=== PATIENT | male | born 1940 | race Caucasian/White ===

== ENCOUNTER 2021-09-14 08:00 | Inpatient (IN) | payer OTHER ==
[~2021-09-14] VITALS: Ht 177.8 cm; Wt 107.3 kg
[~2021-09-14 08:00] MED LIST: ASPI-1005 PO; ATEN100T PO; FENO160T16 PO; ISOS30TA92 PO; KRIL1CAP18 PO; LISI40TA9 PO; METF-444 PO; MULT-1258 PO; NAPR-1023 PO; PANT40TA54 PO; PRAV20TA4 PO
[2021-09-14 12:33] LABS: BASOPHILS % (AUTO) 0.7 % (0.0-5.0); EOSINOPHILS % (AUTO) 3.7 % (0.0-8.0); LYMPHOCYTES % (AUTO) 21.7 % (21.0-51.0); MEAN CORPUSCULAR HEMOGLOBIN 29.6 pg (27.0-33.0); MEAN CORPUSCULAR HGB CONC 33.7 g/dL (32.0-36.0); MEAN CORPUSCULAR VOLUME 87.7 fL (79-99); MONOCYTES % (AUTO) 7.7 % (3.0-13.0); PLATELET COUNT (AUTO) 252 K/uL (130-400); RED BLOOD CELL COUNT(AUTO) 3.99 MIL/uL (4.50-6.20); RED CELL DISTRIBUTION WIDTH 16.8 % (11.0-15.5); WHITE BLOOD COUNT (AUTO) 5.7 K/uL (4.8-10.8)
[2021-09-14 12:40] LABS: APPEARANCE,URINE Clear (CLEAR); BILIRUBIN,URINE Negative (NEGATIVE); COLOR,URINE Yellow (YELLOW); GLUCOSE, URINE (UA) Negative (NEGATIVE); KETONES,URINE Negative (NEGATIVE); LEUKOCYTE ESTERASE ,URINE Negative (NEGATIVE); NITRATE,URINE Negative (NEGATIVE); OCCULT BLOOD,URINE Negative (NEGATIVE); PROTEIN,URINE Negative (NEGATIVE); UROBILINOGEN,URINE 0.2 mg/dL (0.2-1.0)
[2021-09-14 12:42] LABS: CREATININE 2.2 mg/dL (0.5-1.5); POTASSIUM 4.4 mmol/L (3.5-5.1)
[2021-09-14 12:50] LABS: INR 1.13 (0.85-1.15); PROTHROMBIN TIME 12.2 SEC (9.6-11.6)
[2021-09-14 18:54] VITALS: BP 140/69
[2021-09-14] MEDS ORDERED: MIRA50TA PO (19:25)
[2021-09-14] MEDS ORDERED: FURO40TA5 PO (19:25)
[2021-09-14] MEDS ORDERED: METO2.5T2 PO (19:25)
[2021-09-14] MEDS ORDERED: GABA100C PO (19:25)
[2021-09-14] MEDS ORDERED: HYDR-4060 PO (19:25)
[2021-09-15] VITALS (25 sets, daily range): BP systolic 141–168; BP diastolic 54–90
[2021-09-15] MEDS: CEFAZOLIN SODIUM 1 GM VIAL ONE ×2 (09:18→12:04)
[2021-09-15] MEDS ORDERED: LACTATED RINGERS 1000ML 0 ML IV ONE (09:18)
[2021-09-15] MEDS ORDERED: 0.9%NACL 1000ML 1,000 ML IV ONE (09:34)
[2021-09-15] MEDS ORDERED: CEFAZOLIN SODIUM 1 GM VIAL ONE (10:51)
[2021-09-15] MEDS ORDERED: ACETAMINOPHEN 500 MG TABLET ONE (11:28)
[2021-09-15] MEDS ORDERED: KETOROLAC 15MG/ML VIAL (15MG/ML) ONE (11:29)
[2021-09-15] MEDS ORDERED: CELECOXIB 200 MG CAP ONE (11:29)
[2021-09-15] MEDS ORDERED: SUCCINYLCHOLINE CHLORIDE 20 MG/ML 10 ML VIAL ONE (11:47)
[2021-09-15] MEDS ORDERED: LIDOCAINE PF 100MG/5ML (2%) SYRINGE 5ML ONE (11:47)
[2021-09-15] MEDS ORDERED: DEXAMETHASONE SOD PHOSPHATE 10MG/ML 1ML VIAL ONE (11:47)
[2021-09-15] MEDS ORDERED: FENTANYL CITRATE PF 50 MCG/1 ML 2ML VIAL ONE (11:48)
[2021-09-15] MEDS ORDERED: NEOSTIGMINE 5MG/5ML SYR IV ONE (11:48)
[2021-09-15] MEDS ORDERED: GLYCOPYRROLATE 1 MG/5 ML SYRINGE ONE (11:48)
[2021-09-15] MEDS ORDERED: PROPOFOL 10 MG/ML 20ML VIAL IV ONE (11:48)
[2021-09-15] MEDS ORDERED: ROCURONIUM 10MG/1ML SYR 10 MG/ML ML ONE ×2 (11:49→12:36)
[2021-09-15] MEDS ORDERED: MIDAZOLAM HCL 1 MG/ML 2ML VIAL ONE (11:49)
[2021-09-15] MEDS ORDERED: ROPIVACAINE 0.5% 5MG/ML 30ML IJ ONE (11:59)
[2021-09-15] MEDS ORDERED: EPHEDRINE SULFATE 50 MG/ML AMPULE ONE (12:07)
[2021-09-15] MEDS ORDERED: CEFAZOLIN SODIUM 1 GM VIAL IRRIG ONE (12:45)
[2021-09-15] MEDS ORDERED: KCL 20 MEQ ERTAB PO PRN (14:00)
[2021-09-15] MEDS: ACETAMINOPHEN 500 MG TABLET PO SCH ×2 (14:00→20:10)
[2021-09-15] MEDS ORDERED: POTASSIUM CHLORIDE 10% ELIXIR 20 MEQ/15 ML UDCUP PO PRN (14:00)
[2021-09-15] MEDS ORDERED: TRAMADOL HCL 50 MG TABLET PO PRN (14:00)
[2021-09-15] MEDS ORDERED: OXYCODONE HCL 5 MG TAB PO PRN (14:00)
[2021-09-15] MEDS ORDERED: DiphenhydrAMINE HCL 50 MG/ML VIAL IVP PRN (14:00)
[2021-09-15] MEDS ORDERED: CALCIUM CARB 500MG PO PRN (14:00)
[2021-09-15] MEDS ORDERED: LIDOCAINE HCL-MPF 1% 2ML VIAL IV PRN (14:00)
[2021-09-15] MEDS ORDERED: KETOROLAC 15MG/ML VIAL (15MG/ML) IV PRN (14:00)
[2021-09-15] MEDS ORDERED: ONDANSETRON 4MG INJ IVP PRN (14:00)
[2021-09-15] MEDS: 0.9%NACL 1000ML 1,000 ML IV SCH (14:00)
[2021-09-15] MEDS ORDERED: POTASSIUM CHLORIDE 20MEQ/100ML 100 ML IV PRN (14:00)
[2021-09-15] MEDS ORDERED: MEPERIDINE-PF 25 MG/ML SYG ONE (15:00)
[2021-09-15] MEDS: INSULIN HUMULIN R 100 UNIT/ML 3ML SQ SCH ×2 (16:30→20:17)
[2021-09-15] MEDS: CEFAZOLIN SODIUM 1 GM VIAL IVP SCH (18:17)
[2021-09-15] MEDS: OXYCODONE HCL 5 MG TAB PO PRN (18:35)
[2021-09-15] MEDS: ISOSORBIDE MONO 30MG SR TAB PO SCH (20:09)
[2021-09-15] MEDS: CELECOXIB 200 MG CAP PO SCH (20:10)
[2021-09-15] MEDS: LISINOPRIL 40 MG TABLET PO SCH (20:10)
[2021-09-15] MEDS: GABAPENTIN 100 MG CAPSULE PO SCH (20:10)
[2021-09-16 00:22] VITALS: BP 143/58
[2021-09-16] MEDS: OXYCODONE HCL 5 MG TAB PO PRN ×3 (01:43→12:31)
[2021-09-16 04:00] VITALS: BP 149/66
[2021-09-16 04:16] LABS: HEMATOCRIT 28.6 % (42-54); MEAN CORPUSCULAR HEMOGLOBIN 28.7 pg (27.0-33.0); MEAN CORPUSCULAR HGB CONC 32.5 g/dL (32.0-36.0); MEAN CORPUSCULAR VOLUME 88.3 fL (79-99); RED BLOOD CELL COUNT(AUTO) 3.24 MIL/uL (4.50-6.20); RED CELL DISTRIBUTION WIDTH 16.6 % (11.0-15.5); WHITE BLOOD COUNT (AUTO) 4.4 K/uL (4.8-10.8)
[2021-09-16] MEDS: CEFAZOLIN SODIUM 1 GM VIAL IVP SCH (04:19)
[2021-09-16 04:23] LABS: POTASSIUM 3.6 mmol/L (3.5-5.1)
[2021-09-16] MEDS: 0.9%NACL 1000ML 1,000 ML IV SCH ×2 (04:27→10:00)
[2021-09-16] MEDS: ACETAMINOPHEN 500 MG TABLET PO SCH ×2 (05:58→14:27)
[2021-09-16] MEDS: INSULIN HUMULIN R 100 UNIT/ML 3ML SQ SCH ×3 (06:19→16:29)
[2021-09-16] MEDS ORDERED: PANTOPRAZOLE 40 MG TAB DR PO SCH (07:30)
[2021-09-16 08:00] VITALS: BP 138/72
[2021-09-16] MEDS ORDERED: (Fenofibrate 160 MG) PO SCH (08:00)
[2021-09-16] MEDS ORDERED: NON-FORMULARY MEDICATION 1 EACH (Atenolol 100 MG) PO SCH (09:00)
[2021-09-16] MEDS ORDERED: METOLAZONE 2.5 MG TABLET PO SCH (09:00)
[2021-09-16] MEDS ORDERED: ASPIRIN 81MG CHEW TAB PO SCH (09:00)
[2021-09-16] MEDS ORDERED: FUROSEMIDE 40 MG TABLET PO SCH (09:00)
[2021-09-16] MEDS ORDERED: ATENOLOL 50 MG TABLET PO SCH (09:00)
[2021-09-16] MEDS ORDERED: POLYETHYLENE GLYCOL 3350 17 GM POWD.PACK PO SCH (09:00)
[2021-09-16] MEDS: ISOSORBIDE MONO 30MG SR TAB PO SCH (09:06)
[2021-09-16] MEDS: CELECOXIB 200 MG CAP PO SCH (09:06)
[2021-09-16] MEDS: GABAPENTIN 100 MG CAPSULE PO SCH (09:07)
[2021-09-16] MEDS: METFORMIN HCL 500 MG TABLET PO SCH ×2 (09:07→16:36)
[2021-09-16] MEDS: LISINOPRIL 40 MG TABLET PO SCH (09:08)
[2021-09-16 12:00] VITALS: BP 131/64
[2021-09-16 16:00] VITALS: BP 138/60
[2021-09-16] MEDS ORDERED: HYDR-4060 PO (17:40)
[2021-09-16] MEDS ORDERED: ASPI-1005 PO (17:40)
[2021-09-18] MEDS ORDERED: BISACODYL 10 MG SUPP.RECT RC PRN (14:00)
== END 2021-09-16 19:13 | disposition home or self-care (01) | DRG 465 ==
LOC: EDSTATUS 08:00 → DAHIP 09-15 08:47 → INTOOBSV 09-15 08:47 → OBSVTOIN 09-15 08:47 → 4AH 09-15 15:30
PROVIDERS: ADMIT Orthopaedic Surgery; ATTEND Orthopaedic Surgery
PROC: 0SPC0NZ Removal of Patellofemoral Synthetic Substitute from Right Knee Joint, Open Approach (ICD-10-PCS; principal; 2021-09-15 12:39)
PROC: 0SRC0NZ Replacement of Right Knee Joint with Patellofemoral Synthetic Substitute, Open Approach (ICD-10-PCS; 2021-09-15 12:39)
DX: T84.092A Other mechanical complication of internal right knee prosthesis, initial encounter (principal); E11.9 Type 2 diabetes mellitus without complications; E78.5 Hyperlipidemia, unspecified; I10 Essential (primary) hypertension; J44.9 Chronic obstructive pulmonary disease, unspecified; Y83.8 Other surgical procedures as the cause of abnormal reaction of the patient, or of later complication, without mention of misadventure at the time of the procedure; Y92.89 Other specified places as the place of occurrence of the external cause
CPT/HCPCS: 36415; 80048; 81003; 82948; 85025; 85027; 85610; 87635; 87641; 93005; 97039; G0378; J0330; J0690; J1100; J1885; J2001; J2175; J2250; J2704; J2710; J2795; J3010; J3490; J7030; J7120

== ENCOUNTER → 2021-11-10 | Outpatient (CLI) | payer OTHER ==
[~2021-11-10] MED LIST changes: +FURO40TA5 PO; +GABA100C PO; +HYDR-4060 PO; +METO2.5T2 PO; +MIRA50TA PO
[2021-11-10] MEDS: REGADENOSON 0.4 MG/5 ML PF SYG IVP SCH (11:57)
== END | disposition home or self-care (01) ==
LOC: RAH 08:48
PROVIDERS: ATTEND Internal Medicine
DX: I12.9 Hypertensive chronic kidney disease with stage 1 through stage 4 chronic kidney disease, or unspecified chronic kidney disease (principal); N18.9 Chronic kidney disease, unspecified
CPT/HCPCS: 78452; 93017; 96374; A9500 ×2; J2785